=== PATIENT | male | born 1960 | race Caucasian/White ===

== ENCOUNTER 2019-11-12 13:54 | Emergency (ER) | payer MEDICAID ==
[~2019-11-12] VITALS: Ht 182.9 cm; Wt 72.7 kg
[2019-11-12 13:58] VITALS: Ht 182.9 cm; Wt 72.7 kg
[2019-11-12] MEDS ORDERED: ABILIFY2 MG (14:01)
[2019-11-12] MEDS ORDERED: PROZAC10 MG (14:01)
[2019-11-12] MEDS ORDERED: PRILOSEC (14:02)
[2019-11-12] MEDS ORDERED: [UNRECOGNIZED DRUG - REMARK] (14:02)
[2019-11-12] MEDS ORDERED: AMBIEN5 MG (14:02)
[2019-11-12] MEDS ORDERED: CATAPRES0.1 MG (14:02)
[2019-11-12 14:21] LABS: BASOPHILS 0.2 % (0-2); EOSINOPHILS 0 % (0-7); HEMATOCRIT 49.3 % (42.0-54.0); HEMOGLOBIN 17.3 g/dL (13.5-17.5); IMMATURE GRANULOCYTES 0.1 % (0-5); LYMPHOCYTES 22.2 % (15-50); MCH 31.9 pg (26.0-34.0); MCHC 35.1 g/dL (31.0-37.0); MCV 90.8 fL (80.0-100.0); MEAN PLATELET VOLUME 9.9 fL (7.4-10.4); MONOCYTES 11.2 % (2-11); NEUTROPHILS 66.3 % (40-80); PLATELET COUNT 224 10x3/uL (130-400); RBC 5.43 10x6/uL (4.20-6.10); RDW 12.7 % (11.5-14.5); WBC 8.4 10x3/uL (4.8-10.8)
[2019-11-12 14:33] LABS: CALC OSMOLALITY 262 mosm/kg (275-300); CALCIUM 8.9 mg/dL (8.5-10.1); CARBON DIOXIDE 25.1 mmol/L (21.0-32.0); CHLORIDE - SERUM 95 mmol/L (98-107); CREATININE - SERUM 0.9 mg/dL (0.6-1.3); GLUCOSE 113 mg/dL (74-106); POTASSIUM - SERUM 4.3 mmol/L (3.5-5.1); SODIUM 131 mmol/L (136-145); UREA NITROGEN 9 mg/dL (7-18); eGFR NON AFRICAN AMERICAN > 90 mL/min (90-120)
[2019-11-12 14:41] LABS: ALKALINE PHOSPHATASE 91 U/L (30-120); ALT (SGPT) 50 U/L (10-68); AMYLASE - SERUM 54 U/L (25-115); BILIRUBIN - TOTAL 0.87 mg/dL (0.2-1.3); LIPASE 157 U/L (73-393); PROTEIN - SERUM 8.3 g/dL (6.4-8.2)
[2019-11-12 14:42] LABS: TROPONIN-I < 0.017 ng/mL (0.000-0.060)
[2019-11-12 15:28] LABS: BILIRUBIN NEGATIVE (NEGATIVE); GLUCOSE NEGATIVE (NEGATIVE); KETONE NEGATIVE (NEGATIVE); NITRITE NEGATIVE (NEGATIVE); SPECIFIC GRAVITY 1.015 (1.005-1.020); UROBILINOGEN NORMAL (NORMAL)
[2019-11-12] MEDS ORDERED: FLOMAX0.4 MG PO (15:38)
[2019-11-12] MEDS ORDERED: FIBERCON625 MG PO (16:39)
[2019-11-12] MEDS ORDERED: FLORASTOR250 MG PO (16:39)
[2019-11-12] MEDS ORDERED: ZOFRAN4 MG PO (16:41)
[2019-11-12 17:25] VITALS: BP 142/97
== END 2019-11-12 17:25 | disposition home or self-care (01) ==
LOC: D.ER 13:54
PROVIDERS: Family Medicine
DX: K57.90 Diverticulosis of intestine, part unspecified, without perforation or abscess without bleeding (principal); R10.31 Right lower quadrant pain; R19.7 Diarrhea, unspecified; R11.2 Nausea with vomiting, unspecified; K21.9 Gastro-esophageal reflux disease without esophagitis

== ENCOUNTER → 2020-08-16 07:30 | Outpatient (CLI) | payer MEDICAID ==
[2019-11-12 13:58] VITALS: BMI 21.7
[~2020-08-16 07:30] MED LIST: ABILIFY2 MG; AMBIEN5 MG; CATAPRES0.1 MG; FIBERCON625 MG PO; FLOMAX0.4 MG PO; FLORASTOR250 MG PO; PRILOSEC; PROZAC10 MG; ZOFRAN4 MG PO; [UNRECOGNIZED DRUG - REMARK]
== END | disposition home or self-care (01) ==
LOC: D.RT 05-27 09:00
PROVIDERS: ATTEND Internal Medicine Pulmonary Disease
DX: J44.9 Chronic obstructive pulmonary disease, unspecified (principal)